=== PATIENT | male | born 1985 | race Caucasian/White ===

== ENCOUNTER 2016-09-29 09:15 | Emergency (ER) | payer SELFPAY ==
[~2016-09-29] VITALS: Ht 177.8 cm; Wt 60.0 kg
[~2016-09-29 09:15] MED LIST: LORT5TAB PO; PROM25SU8 PO; RANI150 PO; Z.0.NO CURRENT MEDS
[2016-09-29 09:19] VITALS: BP 106/78; PULSE 74; RESP 15; TEMP 98.2; O2SAT 99
--- NOTE | 2016-09-29 09:45 | PD ---
HPI . right ear swelling x 1 week Chief Complaint: Facial Pain or Swelling Time Seen by Provider: 09:45 Travel History International Travel<30 days: No Contact w/Intl Traveler<30days: No Traveled to known affect area: No History of Present Illness HPI 31-year-old male here with complaints of right ear swelling for the past week. Patient tells me he's been trying to use warm compresses and thinks the area is getting bigger. He admits to a lot of pain in his right earlobe. He tells me that he has difficulty sleeping. He does admit to sleeping wildly. He denies any recent trauma to this area. He denies any fever or chills. He tells me that he thinks there is some drainage coming from the ear, but did not see if it was purulent. PFSH Past Medical History ?: Not Social History Alcohol Use: No Tobacco Use: Yes Substance Use: Yes ("WEED" ONCE IN A WHILE- IT'S BEEN 3 WEEKS ) Allergies-Medications (Allergen,Severity, Reaction): Coded Allergies: No Known Allergies (Unverified , 06/06/12) Reported Meds & Prescriptions Reported Meds & Active Scripts Active Ibuprofen 800 Mg Tab 800 Mg PO TID Bactrim DS (Sulfamethoxazole-Trimethoprim) 800-160 Mg Tab 1 Tab PO BID Zantac (Ranitidine HCl) 150 Mg Tab 150 Mg PO BID 30 Days Lortab 5/500 (Acetaminophen/Hydrocodone Bitart) 5 Mg/500 Mg Tab 1 Tab PO Q6HPRN Promethazine Hcl (Promethazine HCl) 25 Mg Tab 25 Mg PO Q6HPRN FOR NAUSEA/VOMITING Reported No Current Meds (Miscellaneous Medication) Misc 0 Review of Systems General / Constitutional: No: Fever Eyes: No: Visual changes HENT: No: Headaches Cardiovascular: No: Chest Pain or Discomfort Respiratory: No: Shortness of Breath Gastrointestinal: No: Abdominal Pain Genitourinary: No: Dysuria Musculoskeletal: No: Pain Skin: Positive Other (right ear swelling), No Rash Neurologic: No: Weakness Psychiatric: No: Depression Endocrine: No: Polydipsia Hematologic/Lymphatic: No: Easy Bruising Physical Exam Narrative GENERAL: AAO x 3, no acute distress, Well-nourished, well-developed patient. SKIN: Warm and dry. No visible rashes or bruising. HEAD: Normocephalic and atraumatic. EYES: No scleral icterus. No injection or drainage. ENT: No nasal drainage noted. Airway patent. Right out ear with large hematoma , soft, tender without any pointing, clear fluid coming out of small opening, mild erythema, no temperature variation, hearing unaffected. TM normal. NECK: Supple, trachea midline. No JVD. CARDIOVASCULAR: Regular rate and rhythm without murmurs, gallops, or rubs. RESPIRATORY: Breath sounds equal bilaterally. No accessory muscle use. No rhonchi or rales. GASTROINTESTINAL: Visual inspection normal EXTREMITIES: No cyanosis or edema. BACK: Nontender without obvious deformity. No CVA tenderness. PSYCH: AAO x 3, normal affect. Data Data Last Documented VS Vital Signs Date Time Temp Pulse Resp B/P Pulse Ox O2 Delivery O2 Flow Rate FiO2 09/29/16 09:19 98.2 74 15 106/78 99 Orders Wound Culture And Gram Stain (09/29/16 09:47) Lidocaine 1% Inj (50 Ml) (Xylocaine 1% I (09/29/16 10:00) MDM Medical Decision Making Medical Screen Exam Complete: Yes Emergency Medical Condition: Yes Medical Record Reviewed: Yes Differential Diagnosis ear hematoma, ear cellulitis, less likely abscess Narrative Course 31-year-old male here with complaints of right ear swelling for the past week. Patient tells me he's been trying to use warm compresses and thinks the area is getting bigger. He admits to a lot of pain in his right earlobe. He tells me that he has difficulty sleeping. He does admit to sleeping wildly. He denies any recent trauma to this area. He denies any fever or chills. He tells me that he thinks there is some drainage coming from the ear, but did not see if it was purulent. Patient seen and examined. He has a right ear hematoma. We discussed and he tells me it is possible he hit his ear either in his sleep or while working at his house. He denies any trauma. I have discussed drainage with him and he is in agreement. To avoid multiple needle sticks, patient asked me to perform without lidocaine. Patient tolerated without incident. 5 cc of serosanguineous liquid was drained. There is some mild erythema to the area, I will go ahead and cross cover with Bactrim to cover MRSA and cellulitis. Patient advised to use ice to his ear. Patient verbalized understanding of instructions, questions were answered, and thanked me for their care. I advised them if their condition worsens, please return to the nearest emergency room for further care. Procedures Procedure Narrative Right ear hematoma drainage Area was cleaned with Betadine. Large 16-gauge needle used to penetrate small hole that was already present 5 cc of serosanguineous liquid drained. No evidence of purulence. Mild erythema. Area cleaned again. Patient with instantaneous relief. Patient tolerated without incident. Diagnosis Primary Impression: Ear hematoma, right Qualified Code: S00.431A - Ear hematoma, right, initial encounter Additional Impression: Cellulitis of right ear Patient Instructions: General Instructions Additional Instructions: Please return to emergency department if your symptoms return or worsen. Follow up with your primary care provider. Take medications as prescribed. Apply ice to your right ear for 15 minutes up to three times a day. Med/Other Pt SpecificInfo: Prescription(s) given Scripts Ibuprofen 800 Mg [id number] Mg PO TID #21 TAB Prov:Dominique Benoit DO 09/29/16 Sulfamethoxazole-Trimethoprim (Bactrim DS)800-160 Mg Tab1 Tab PO BID #20 TAB Prov:Dominique Benoit DO 09/29/16 Disposition: 01 DISCHARGE HOME Condition: Stable Brigitte Vásquez September 29, 2016 09:45
[2016-09-29] MEDS ORDERED: LIDOCAINE HCL 1% 50 ML VIAL INFIL ONE (10:00)
[2016-09-29] MEDS ORDERED: IBUP800T23 PO (10:03)
[2016-09-29] MEDS ORDERED: BACT800T5 PO (10:03)
== END 2016-09-29 10:19 | disposition home or self-care (01) ==
LOC: NEPK 09:15
DX: S00.431A Contusion of right ear, initial encounter (principal); H60.11 Cellulitis of right external ear; X58.XXXA Exposure to other specified factors, initial encounter; Z72.0 Tobacco use
CPT/HCPCS: 10140